=== PATIENT | male | born 1945 | race Caucasian/White ===

== ENCOUNTER → 2016-07-13 | Outpatient (REF) ==
[~2016-07-13] MED LIST: ADVIL200 MG PO; ALEVE220 MG PO; ASPIRIN E.C. 8181 MG PO; ATENOLOL25 MG PO; ATIVAN0.5 MG PO; MUCINEX600 M1 PO; PAXIL10 MG PO; ZYRTEC10 MG PO
[2016-07-13 16:07] LABS: THYROID STIMULATING HORMONE 0.549 uIU/mL (0.465-4.680)
[2016-07-13 17:03] LABS: PSA-TOTAL 2.8 ng/mL (0-4)
== END ==
LOC: ZLAB.WCH 15:21
PROVIDERS: Internal Medicine
DX: Z01.89 Encounter for other specified special examinations (principal)
CPT/HCPCS: G0103

== ENCOUNTER → 2017-08-30 | Outpatient (REF) | LOC: ZLAB.WCH 17:58 | DX: Z01.89 Encounter for other specified special examinations (principal) ==